=== PATIENT | female | born 1970 | race Hispanic/Latino ===

== ENCOUNTER 2016-08-12 15:27 | Emergency (ER) | payer OTHER ==
[2016-08-12 15:36] VITALS: BP 138/64; PULSE 79; RESP 14; TEMP 98.2; O2SAT 100
--- NOTE | 2016-08-12 16:14 | ED PDOC ---
HPI: Headache Time Seen by Provider: 08/12/16 16:03 Chief Complaint (Nursing): Headache Chief Complaint (Provider): Headache History Per: Patient History/Exam Limitations: no limitations Onset/Duration Of Symptoms: Days (x3) Current Symptoms Are (Timing): Still Present Severity: Mild Associated Symptoms: Nausea. denies: Photophobia, Blurred Vision Additional Complaint(s): Patient is a 46 year old female presenting to the ED complaining of headache status post head injury x3 days ago. Patient reports she stood up and hit the top her head on a shelf. Headache is associated with dizziness, fatigue, and nausea. Patient reports she "feels off". Patient took Tylenol with no relief. Denies vision changes, change in gait, weakness, loss of consciousness or vomiting. PMD: Steven Nguyen Past Medical History Reviewed: Historical Data, Nursing Documentation, Vital Signs Vital Signs: Last Vital Signs Temp 98.2 F 08/12/16 15:30 Pulse 79 08/12/16 15:30 Resp 14 08/12/16 15:30 BP 138/64 08/12/16 15:30 Pulse Ox 100 08/12/16 15:30 - Medical History PMH: No Chronic Diseases - Family History Family History: States: No Known Family Hx - Home Medications Home Medications: Ambulatory Orders Medication Instructions Recorded No Known Home Med 08/12/16 - Allergies Allergies/Adverse Reactions: Allergies Allergy/AdvReac Type Severity Reaction Status Date / Time codeine Allergy RASH Verified 08/12/16 15:30 Review of Systems ROS Statement: Except As Marked, All Systems Reviewed And Found Negative Constitutional: Positive for: Other (fatigue) Gastrointestinal: Positive for: Nausea. Negative for: Vomiting Neurological: Positive for: Headache, Dizziness Physical Exam - Reviewed Nursing Documentation Reviewed: Yes Vital Signs Reviewed: Yes - Physical Exam Appears: Positive for: Well, Non-toxic, No Acute Distress Head Exam: Positive for: ATRAUMATIC, NORMAL INSPECTION, NORMOCEPHALIC Skin: Positive for: Normal Color, Warm, DRY Eye Exam: Positive for: EOMI, Normal appearance, PERRL Neck: Positive for: Normal, Painless ROM Cardiovascular/Chest: Positive for: Regular Rate, Rhythm. Negative for: Gallop , Murmur Respiratory: Positive for: Normal Breath Sounds. Negative for: Accessory Muscle Use, Rhonchi, Respiratory Distress Extremity: Positive for: Normal ROM Neurologic/Psych: Positive for: Alert, insurance consultant II-XII (intact), Oriented, Cerebellar Tests (stable), Gait (steady). Negative for: Motor/Sensory Deficits , Facial Droop - ECG O2 Sat by Pulse Oximetry: 100 (RA) Pulse Ox Interpretation: Normal - CT Scan/US head Other Rad Studies (CT/US): Interpreted By Me, Radiology Report Reviewed Medical Decision Making Medical Decision Making: Time: 16:05 Impression: 46 y/o female with RAJAN s/p head injury Plan: CT head-negative pt avised to have pmd f.u take concussion precautions and strongly advised to rest advised symptoms may last >1week advised to have concussion study done. Scribe Attestation: Documented by Myles Allan acting as a scribe for MILIND Orosco. Provider Attestation: All medical record entries made by the Scribe were at my direction and personally dictated by me. I have reviewed the chart and agree that the record accurately reflects my personal performance of the history, physical exam, medical decision making, and the department course for this patient. I have also personally directed, reviewed, and agree with the discharge instructions and disposition. Disposition - Clinical Impression Clinical Impression: Concussion - Patient ED Disposition Is Patient to be Admitted: No Counseled Patient/Family Regarding: Studies Performed, Diagnosis, Need For Followup - Disposition Disposition: Routine/Home Disposition Time: 16:36 Condition: STABLE Instructions: Concussion (ED)
--- NOTE | 2016-08-12 16:48 | CT ---
PROCEDURE: CT HEAD WITHOUT CONTRAST. HISTORY: Head injury 3 days ago-worsening dizziness/gait COMPARISON: None available. TECHNIQUE: Axial computed tomography images were obtained through the head/brain without intravenous contrast. Radiation dose: Total exam DLP = 777.92 mGy-cm. This CT was performed using one or more of the following dose reduction techniques: Automated exposure control, adjustment of the mA and/or KV according to patient size, and/or use of iterative reconstruction technique. FINDINGS: HEMORRHAGE: No intracranial hemorrhage. BRAIN: No mass effect or edema. No CT evidence of acute territorial infarct. No atrophy or chronic microvascular ischemic changes. VENTRICLES: Unremarkable. No hydrocephalus. CALVARIUM: Unremarkable. PARANASAL SINUSES: Unremarkable as visualized. No significant inflammatory changes. MASTOID AIR CELLS: Unremarkable as visualized. No inflammatory changes. OTHER FINDINGS: None. IMPRESSION: No CT evidence of acute intracranial hemorrhage or acute territorial infarct. Acute infarction may be CT occult within first 24 hours. If a focal deficit persists, consider followup CT or MRI for further evaluation.
== END 2016-08-12 16:59 | disposition home or self-care (01) ==
LOC: H.ER 15:27
DX: S09.90XA Unspecified injury of head, initial encounter (principal); S06.0X9A Concussion with loss of consciousness of unspecified duration, initial encounter; W22.8XXA Striking against or struck by other objects, initial encounter; Y92.89 Other specified places as the place of occurrence of the external cause

== ENCOUNTER 2018-06-10 09:19 | Emergency (ER) | payer OTHER ==
[2018-06-10 09:34] VITALS: BP 118/82; PULSE 67; RESP 16; TEMP 97; O2SAT 100
--- NOTE | 2018-06-10 10:13 | ED PDOC ---
Upper Extremity Pain/Injury Chief Complaint (Provider): Hand injury Additional History Per: Patient Additional Complaint(s): This is 48 y/o F with PMH of mitral valve prolapse comes to the ER c/o 5 days hx of right 4th and 5th metacarpal pain. Patient reports she injured her self while doing pilates, noticed some swelling on same day with pain. Pain is 6/10, constant, worsening pain with 4th and 5th finger movements, no locking, weakness/tingling/numbness. Patient reports pain got worse since yesterday when her pinky finger got stuck in jacket while wearing. PMH: MVP PSH: Denies Allg: Codeine Meds: None SH: Social alcohol, no smoking or drug use FH: Denies <Ricki Marquis - Last Filed: 06/10/18 18:33> <Tania Thomas - Last Filed: 06/11/18 15:44> Time Seen by Provider: 06/10/18 09:41 Chief Complaint (Nursing): Finger,Hand,&Wrist Supervising Attending Note - Supervising Attending Note The Documented history was done by the: Physician Com Writer, Attending Physician The documented physical exam was done by the: Physician Com Writer, Attending Physician The documented procedures were done by the: Physician Com Writer, Attending Physician - Attestation: I have personally seen and examined this patient.: Yes I have fully participated in the care of the patient.: Yes I have reviewed all pertinent clinical information: Yes <Tania Thomas - Last Filed: 06/11/18 15:44> Past Medical History Vital Signs: Last Vital Signs Temp 97 F L 06/10/18 09:32 Pulse 67 06/10/18 09:32 Resp 16 06/10/18 09:32 BP 118/82 06/10/18 09:32 Pulse Ox 100 06/10/18 09:32 - Medical History PMH: Mitral Valve Prolapse - Surgical History Surgical History: No Surg Hx - Family History Family History: States: No Known Family Hx <Ricki Marquis - Last Filed: 06/10/18 18:33> Reviewed: Historical Data, Nursing Documentation, Vital Signs Vital Signs: Last Vital Signs Temp 97 F L 06/10/18 09:32 Pulse 67 06/10/18 09:32 Resp 16 06/10/18 09:32 BP 118/82 06/10/18 09:32 Pulse Ox 100 06/10/18 18:34 <WilliamLuis Miguelana Reeder - Last Filed: 06/11/18 15:44> - Home Medications Home Medications: Ambulatory Orders Medication Instructions Recorded Acetaminophen [Tylenol 325mg tab] 650 mg PO Q6H PRN #30 tab 06/10/18 - Allergies Allergies/Adverse Reactions: Allergies Allergy/AdvReac Type Severity Reaction Status Date / Time codeine Allergy RASH Verified 06/10/18 09:31 Review of Systems Constitutional: Negative for: Fever Eyes: Negative for: Pain, Vision Change, Conjunctivae Inflammation ENT: Negative for: Ear Pain, Nose Pain Cardiovascular: Negative for: Chest Pain, Palpitations, Orthopnea Respiratory: Negative for: Cough, Shortness of Breath, Hemoptysis Gastrointestinal: Negative for: Nausea, Vomiting, Abdominal Pain, Diarrhea Genitourinary Female: Negative for: Dysuria, Frequency, Incontinence Musculoskeletal: Positive for: Hand Pain (4th and 5th metacarpal pain ). Negative for: Neck Pain, Shoulder Pain, Arm Pain, Back Pain Skin: Negative for: Rash Neurological: Negative for: Weakness, Numbness, Incoordination Psych: Negative for: Anxiety <Ricki Marquis - Last Filed: 06/10/18 18:33> ROS Statement: Except As Marked, All Systems Reviewed And Found Negative <Tania Thomas A - Last Filed: 06/11/18 15:44> Physical Exam - Physical Exam Appears: Positive for: No Acute Distress Head Exam: Positive for: NORMAL INSPECTION Skin: Positive for: Normal Color, Warm, Dry Eye Exam: Positive for: Normal appearance ENT: Positive for: Normal ENT Inspection Neck: Positive for: Normal Cardiovascular/Chest: Positive for: Regular Rate, Rhythm Respiratory: Positive for: Normal Breath Sounds. Negative for: Decreased Breath Sounds, Accessory Muscle Use Gastrointestinal/Abdominal: Positive for: Normal Exam, Bowel Sounds, Soft. Negative for: Tenderness Back: Positive for: Normal Inspection. Negative for: L CVA Tenderness, R CVA Tenderness Extremity: Positive for: Other (Right 4th and 5th metacarpal tenderness, mild swelling and discolarationg of skin, pain with passive and active ROM of 4th and 5th R fingers ) Neurologic/Psych: Positive for: Alert, Oriented <Ricki Marquis - Last Filed: 06/10/18 18:33> - Reviewed Nursing Documentation Reviewed: Yes Vital Signs Reviewed: Yes <WilliamTania - Last Filed: 06/11/18 15:44> - ECG O2 Sat by Pulse Oximetry: 100 - Progress ED Course And Treament: A/P: 48 y/o F with 4th and 5th metacarpal injury/pain/swelling. - Tylenol - Xray of hand, 3 view Case discussed with Dr. Ruth Hand Xray: 5th metacarpal oblique minimally displaced fracture (read by me) Hand, Dr. Goldstein was called, case discussed: ulnar gutter splint and close f/u Re-evaluation Time: 11:05 Condition: Re-examined <Ricki Marquis - Last Filed: 06/10/18 18:33> Medical Decision Making Medical Decision Making: Right 5th metacarpal fracture <Ricki Marquis - Last Filed: 06/10/18 18:33> Procedures - Splinting Location: Right hand Pre-Made Type: velcro Hand-Made Type: fiberglass Splint: ulnar Pre-Proc Neuro Vasc Exam: normal Post-Proc Neuro Vasc Exam: normal Progress: Patient was placed on ulnar gutter splint due to Right 5th metacarple fracture. Procedure well tolerated, no neurovascular deficit. <Ricki Marquis - Last Filed: 06/10/18 18:33> Disposition - Patient ED Disposition Is Patient to be Admitted: No - Disposition Disposition: Routine/Home Disposition Time: 11:36 <Ricki Marquis - Last Filed: 06/10/18 18:33> Discussed With Dr.: Maximino Goldstein Doctor Will See Patient In The: Office Counseled Patient/Family Regarding: Studies Performed, Diagnosis <DavidparkerLuis Miguelana Lilli - Last Filed: 06/11/18 15:44> - Clinical Impression Clinical Impression: Fracture of fifth metacarpal bone - Disposition Referrals: Maximino Goldstein MD [Staff Provider] - Condition: GOOD Additional Instructions: Follow up with Hand surgery ulnar gutter splint in place: return to ER if worsening pain, numbness, skin changes, tingling Prescriptions: Acetaminophen [Tylenol 325mg tab] 650 mg PO Q6H PRN #30 tab PRN Reason: Pain, Moderate (4-7) Instructions: Hand Fracture Forms: [facility] ED School/Work Excuse Print Language: CITIZEN OF [place]
--- NOTE | 2018-06-10 11:40 | RAD ---
PROCEDURE: Bilateral hand radiographs. HISTORY: Pain and swelling at 4th and 5th metacarpal, COMPARISON: None. FINDINGS: BONES: Right Hand: Oblique fracture non articular right 5th metacarpal. Left Hand: Normal. No osteoarthritic changes. JOINTS: Right Hand: Normal. Left Hand: Normal. SOFT TISSUES: Right Hand: Soft tissue swelling attests to the acuity of the fracture. Left Hand: Normal. OTHER FINDINGS: None. IMPRESSION: Acute fracture right 5th metacarpal. No appreciable angulation, impaction or distraction.
== END 2018-06-10 12:08 | disposition home or self-care (01) ==
LOC: H.ER 09:19
DX: S62.306A Unspecified fracture of fifth metacarpal bone, right hand, initial encounter for closed fracture (principal); X50.9XXA Other and unspecified overexertion or strenuous movements or postures, initial encounter; Y92.89 Other specified places as the place of occurrence of the external cause